=== PATIENT | male | born 1990 | race Caucasian/White ===

== ENCOUNTER 2019-08-15 14:50 | Emergency (ER) | payer SELFPAY ==
[~2019-08-15] VITALS: Ht 177 cm; Wt 64.3 kg
--- NOTE | 2019-08-15 16:51 | ED Respiratory ---
General Chief Complaint: Respiratory Problems Stated Complaint: UPPER RESPITORY INFECTION Nursing Triage Note: PATIENT STATES THAT HE STARTED FEELING POORLY FOR 72 HRS. HE IS SLEEPING A LOT, NO BM, NO URINE OUTPUT, CHILLS AND COLD SWEATS, STATES HE FEELS LIKE HE HAS AN UPPER RESP INFECTION. HE IS COUGHING (PRODUCTIVE), AND SNEEZING AND HAS A LOT OF DRAINAGE. Source: patient Exam Limitations: no limitations History of Present Illness Date Seen by Provider: Aug 15, 2019 Time Seen by Provider: 16:51 Initial Comments To ER with reports of headache, nasal congestion, cold chills, cough, no bowel movement, sneezing, nasal drainage for about 72 hours. Hasn't urinated in about 12 hours. Timing/Duration: constant, getting worse Severity: moderate Associated Symptoms: cough, fever/chills; No shortness of breath; sinus infection Allergies and Home Medications Allergies Coded Allergies: Penicillins (Verified Allergy, Unknown, 08/15/19) amoxicillin (Verified Allergy, Unknown, 08/15/19) Patient Home Medication List Home Medication List Reviewed: Yes Review of Systems Review of Systems Constitutional: see HPI, chills EENTM: see HPI, nose congestion, throat pain Respiratory: see HPI, cough Cardiovascular: no symptoms reported Genitourinary: no symptoms reported Musculoskeletal: no symptoms reported Skin: no symptoms reported Psychiatric/Neurological: No Symptoms Reported Hematologic/Lymphatic: No Symptoms Reported Past Zguwknm-Mqeslf-Kdhceg Hx Patient Social History Alcohol Use: Occasionally Uses Recreational Drug Use: Yes (MARIJUANA) Smoking Status: Current Someday Smoker 2nd Hand Smoke Exposure: Yes Recent Foreign Travel: No Contact w/Someone Who Travel: No Recent Infectious Disease Expo: No Recent Hopitalizations: No Seasonal Allergies Seasonal Allergies: No Past Medical History Surgeries: Yes Orthopedic, Tonsillectomy Respiratory: No Cardiac: No Neurological: No Genitourinary: No Gastrointestinal: No Musculoskeletal: No Endocrine: No HEENT: No Cancer: No Psychosocial: No Integumentary: No Blood Disorders: No Physical Exam Vital Signs - First Documented 08/15/19 15:08 Temp 36.6 Pulse 106 Resp 20 B/P (MAP) 139/93 (108) Pulse Ox 96 Capillary Refill : Less Than 3 Seconds Height: '" Weight: lbs. oz. kg; 20.00 BMI Method: General Appearance: WD/WN, no apparent distress Eyes: Bilateral Eye Normal Inspection, Bilateral Eye PERRL, Bilateral Eye EOMI HEENT: PERRL/EOMI, normal ENT inspection Neck: non-tender, full range of motion Respiratory: normal breath sounds, no respiratory distress, no accessory muscle use Cardiovascular: regular rate, rhythm, no murmur Gastrointestinal: normal bowel sounds, non tender, soft Neurologic/Psychiatric: alert, normal mood/affect, oriented x 3 Skin: normal color, warm/dry Progress/Results/Core Measures Suspected Sepsis Recent Fever Within 48 Hours: No Infection Criteria Present: Suspected New Infection New/Unexplained Altered Menta: No Sepsis Screen: No Definite Risk SIRS Temperature: Pulse: 106 Respiratory Rate: 20 Laboratory Tests 08/15/19 16:45: White Blood Count 9.1 Blood Pressure 139 /93 Mean: 108 Laboratory Tests 08/15/19 16:45: Creatinine 1.06, Platelet Count 230, Total Bilirubin 0.6 Results/Orders Lab Results Laboratory Tests Test 08/15/19 16:45 Range/Units White Blood Count 9.1 4.3-11.0 10^3/uL Red Blood Count 6.41 H 4.35-5.85 10^6/uL Hemoglobin 17.6 13.3-17.7 G/DL Hematocrit 52 40-54 % Mean Corpuscular Volume 81 80-99 FL Mean Corpuscular Hemoglobin 28 25-34 PG Mean Corpuscular Hemoglobin Concent 34 32-36 G/DL Red Cell Distribution Width 14.6 H 10.0-14.5 % Platelet Count 230 130-400 10^3/uL Mean Platelet Volume 10.9 H 7.4-10.4 FL Neutrophils (%) (Auto) 55 42-75 % Lymphocytes (%) (Auto) 30 12-44 % Monocytes (%) (Auto) 14 H 0-12 % Eosinophils (%) (Auto) 1 0-10 % Basophils (%) (Auto) 1 0-10 % Neutrophils # (Auto) 5.0 1.8-7.8 X 10^3 Lymphocytes # (Auto) 2.8 1.0-4.0 X 10^3 Monocytes # (Auto) 1.3 H 0.0-1.0 X 10^3 Eosinophils # (Auto) 0.1 0.0-0.3 10^3/uL Basophils # (Auto) 0.1 0.0-0.1 10^3/uL Sodium Level 139 135-145 MMOL/L Potassium Level 4.1 3.6-5.0 MMOL/L Chloride Level 101 98-107 MMOL/L Carbon Dioxide Level 21 21-32 MMOL/L Anion Gap 17 H 5-14 MMOL/L Blood Urea Nitrogen 18 7-18 MG/DL Creatinine 1.06 0.60-1.30 MG/DL Estimat Glomerular Filtration Rate > 60 BUN/Creatinine Ratio 17 Glucose Level 84 70-105 MG/DL Calcium Level 9.8 8.5-10.1 MG/DL Corrected Calcium 8.5-10.1 MG/DL Total Bilirubin 0.6 0.1-1.0 MG/DL Aspartate Amino Transf (AST/SGOT) 18 5-34 U/L Alanine Aminotransferase (ALT/SGPT) 17 0-55 U/L Alkaline Phosphatase 89 40-136 U/L Total Protein 7.8 6.4-8.2 GM/DL Albumin 4.8 H 3.2-4.5 GM/DL Micro Results Microbiology 08/15/19 Influenza Types A,B Antigen (SALLY) - Final, Complete My Orders Orders - LADAN FELDER APRN Chest Pa/Lat (2 View) (08/15/19 16:29) Cbc With Automated Diff (08/15/19 16:29) Comprehensive Metabolic Panel (08/15/19 16:29) Influenza A And B Antigens (08/15/19 16:29) Ns Iv 1000 Ml (Sodium Chloride 0.9%) (08/15/19 17:00) Ed Iv/Invasive Line Start (08/15/19 16:49) Vital Signs/I&O 08/15/19 15:08 Temp 36.6 Pulse 106 Resp 20 B/P (MAP) 139/93 (108) Pulse Ox 96 Capillary Refill : Less Than 3 Seconds Blood Pressure Mean: 108 POS Departure Communication (Admissions) He'd like a zpack he states Impression Primary Impression: Bronchitis Disposition: 01 HOME, SELF-CARE Condition: Stable Departure-Patient Inst. Decision time for Depature: 18:17 Patient Instructions: Viral Upper Respiratory Infection, Adult (DC), Acute Bronchitis Add. Discharge Instructions: 1. Return to ER for any concerns 2. Cough/decongestant medication as directed. Return to ER for any concerns. All discharge instructions reviewed with patient and/or family. Voiced understanding. Scripts D-Methorphan Hb/P-Epd HCl/Bpm (Bromfed Dm Cough Syrup) 118 Ml Syrup 5 ML PO Q4H PRN for CONGESTION for 7 Days, #120 ML Prov: LADAN FELDER APRN 08/15/19 Azithromycin (Azithromycin) 250 Mg Tablet 250 MG PO UD, #6 TAB TAKE 2 TABLETS ON DAY ONE THEN TAKE 1 TABLET DAILY FOR FOUR MORE DAYS Prov: LADAN FELDER APRN 08/15/19 LADAN FELDER APRN Aug 15, 2019 16:51 POS
[2019-08-15 16:52] LABS: BASOPHILS # (AUTO) 0.1 10^3/uL (0.0-0.1); BASOPHILS % (AUTO) 1 % (0-10); EOSINOPHILS # (AUTO) 0.1 10^3/uL (0.0-0.3); EOSINOPHILS % (AUTO) 1 % (0-10); HEMATOCRIT 52 % (40-54); HEMOGLOBIN 17.6 G/DL (13.3-17.7); LYMPHOCYTES # (AUTO) 2.8 X 10^3 (1.0-4.0); LYMPHOCYTES % (AUTO) 30 % (12-44); MEAN CORPUSCULAR HEMOGLOBIN 28 PG (25-34); MEAN CORPUSCULAR HGB CONC 34 G/DL (32-36); MEAN CORPUSCULAR VOLUME 81 FL (80-99); MEAN PLATELET VOLUME 10.9 FL (7.4-10.4); MONOCYTES # (AUTO) 1.3 X 10^3 (0.0-1.0); MONOCYTES % (AUTO) 14 % (0-12); NEUTROPHILS % (AUTO) 55 % (42-75); PLATELET COUNT 230 10^3/uL (130-400); RED CELL DISTRIBUTION WIDTH 14.6 % (10.0-14.5); WHITE BLOOD COUNT 9.1 10^3/uL (4.3-11.0)
[2019-08-15] MEDS ORDERED: NS IV 1000 ML 1,000 ML IV SCH (17:00)
[2019-08-15 17:19] LABS: ALANINE AMINOTRANSFERASE 17 U/L (0-55); ALBUMIN 4.8 GM/DL (3.2-4.5); ALKALINE PHOSPHATASE 89 U/L (40-136); BILIRUBIN,TOTAL 0.6 MG/DL (0.1-1.0); BUN/CREATININE RATIO 17; CALCIUM 9.8 MG/DL (8.5-10.1); CARBON DIOXIDE 21 MMOL/L (21-32); CHLORIDE 101 MMOL/L (98-107); CREATININE SERUM 1.06 MG/DL (0.60-1.30); GFR ESTIMATED > 60; GLUCOSE 84 MG/DL (70-105); POTASSIUM 4.1 MMOL/L (3.6-5.0); SODIUM 139 MMOL/L (135-145); TOTAL PROTEIN 7.8 GM/DL (6.4-8.2)
--- NOTE | 2019-08-15 17:27 | Diagnostic Imaging Report ---
INDICATION: Cough and congestion. FINDINGS: PA and lateral views. The lungs are well aerated and clear. There is no air-trapping. Heart is not enlarged. No pulmonary edema. No pneumothorax or pleural effusion. No bony abnormalities. IMPRESSION: Normal PA and lateral chest. Dictated by: Dictated on workstation # [id number]
[2019-08-15 18:53] VITALS: BP 139/93
[2019-08-15] MEDS ORDERED: AZIT250T12 PO (18:53)
[2019-08-15] MEDS ORDERED: D-ME118S33 PO (18:53)
--- OUTSIDE RECORDS SUMMARY | 2019-09-10 23:48 | XMS REPORT ---
Author Author Srikanth LOPEZ Organization [facility] Address Unknown Care Team Providers Care Sample Prep Technician Name Role Phone JOHNVIRGINIA Unavailable PROBLEMS Unknown Problems ALLERGIES Substance Reaction Event Type Date Status Penicillin G Benzathine Unknown Drug Allergy January, Acti ve Amoxicillin Unknown Drug Allergy January, Active ENCOUNTERS Encounter Location Date Diagnosis [facility] [id number] [place] [address] [phone] January, Dental caries K02.9 [facility] [address] [id number] [address] [place] [address] [phone] Dec, Dental examination Z01.20 IMMUNIZATIONS No Known Immunizations SOCIAL HISTORY Never Assessed REASON FOR VISIT TE PLAN OF CARE Activity Details Follow Up prn Reason:hygiene VITAL SIGNS Blood pressure systolic 140 mmHg 2018-01-17 Blood pressure diastolic 82 mmHg 2018-01-17 MEDICATIONS Medication Instructions Dosage Frequency Start Date End Date Duration S tatus tylenol Active Benadryl Active RESULTS No Results PROCEDURES Procedure Date Ordered Result Body Site EXTRAC ERUPTED TOOTH/EXPOSED ROOT January 17, 2018 INSTRUCTIONS MEDICATIONS ADMINISTERED No Known Medications MEDICAL (GENERAL) HISTORY Type Description Date Surgical History right femur traction break (1 belén and 2 screws placed) 2014 Hospitalization History above surgery
--- OUTSIDE RECORDS SUMMARY | 2019-09-10 23:48 | XMS REPORT | Continuity of Care Document ---
Author Organization Unknown Address Unknown Phone Unavailable Allergies Active Description Code Type Severity Reaction Onset Reported/Identified Relationship to Patient Clinical Status Yes amoxicillin [id number] Drug Aller gy Unknown N/A 08/15/2019 Yes Penicillins [id number] Drug Aller gy Unknown N/A 08/15/2019 Medications There is no data. Problems Date Dx Coded Attending Type Code Diagnosis Diagnosed By 08/15/2019 LADAN FELDER APRN Ot F17.200 NICOTINE DEPENDENCE, UNSPECIFIED, UNCOMP 08/15/2019 LADAN FELDER APRN Ot J40 BRONCHITIS, NOT SPECIFIED ACUTE OR CH 08/15/2019 LADAN FELDER APRN Ot R05 COUGH 08/15/2019 LADAN FELDER APRN Ot Z88 .0 ALLERGY STATUS TO PENICILLIN 08/15/2019 LADAN FELDER APRN Ot Z90.89 ACQUIRED ABSENCE OF OTHER ORGANS 08/19/2019 LADAN FELDER APRN Ot F17.200 NICOTINE DEPENDENCE, UNSPECIFIED, UNCOMP 08/19/2019 LADAN FELDER APRN Ot J40 BRONCHITIS, NOT SPECIFIED ACUTE OR CH 08/19/2019 LADAN FELDER APRN Ot R05 COUGH 08/19/2019 LADAN FELDER APRN Ot Z88 .0 ALLERGY STATUS TO PENICILLIN 08/19/2019 LADAN FELDER APRN Ot Z90.89 ACQUIRED ABSENCE OF OTHER ORGANS Procedures There is no data. Results Test Result Range Influenza virus A and B antigen detectio n - 08/15/19 16:25 FLU RESULT NEGATIVE FOR INFLUENZA A AND B ANTIGENS BY IA NR Complete blood count (CBC) with automate d white blood cell (WBC) differential - 08/15/19 16:45 Blood leukocytes automated count (number/volume) 9.1 10*3/uL 4.3-11.0 Blood erythrocytes automated count (number/volume) 6.41 10*6/uL 4.35-5.85 Venous blood hemoglobin measurement (mass/volume) 17.6 g/dL 13.3-17.7 Blood hematocrit (volume fraction) 52 % 40-54 Automated erythrocyte mean corpuscular volume 81 [ foz_us] 80-99 Automated erythrocyte mean corpuscular h emoglobin (mass per erythrocyte) 28 pg 25-34 Automated erythrocyte mean corpuscular h emoglobin concentration measurement (mass/volume) 34 g/dL 32-36 Automated erythrocyte distribution width ratio 14. 6 % 10.0- 14.5 Automated blood platelet count (count/volume) 230 10*3/uL 130-400 Automated blood platelet mean volume measurement 10.9 [foz_us] 7.4-10.4 Automated blood neutrophils/100 leukocytes 55 % 42-75 Automated blood lymphocytes/100 leukocytes 30 % 12-44 Blood monocytes/100 leukocytes 14 % 0-12 Automated blood eosinophils/100 leukocytes 1 % 0-10 Automated blood basophils/100 leukocytes 1 % 0-10 Blood neutrophils automated count (number/volume) 5.0 10*3 1.8-7.8 Blood lymphocytes automated count (number/volume) 2.8 10*3 1.0-4.0 Blood monocytes automated count (number/volume) 1. 3 10*3 0.0-1.0 Automated eosinophil count 0.1 10*3/uL 0 .0-0.3 Automated blood basophil count (count/volume) 0.1 10*3/uL 0.0-0.1 Comprehensive metabolic panel - 08/15/19 16:45 Serum or plasma sodium measurement (moles/volume) 139 mmol/L 135-145 Serum or plasma potassium measurement (moles/volume) 4.1 mmol/L 3.6-5.0 Serum or plasma chloride measurement (moles/volume) 101 mmol/L 98-107 Carbon dioxide 21 mmol/L 21-32 Serum or plasma anion gap determination (moles/volume) 17 mmol/L 5-14 Serum or plasma urea nitrogen measurement (mass/volume ) 18 mg/dL 7-18 Serum or plasma creatinine measurement (mass/volume) 1.06 mg/dL 0.60-1.30 Serum or plasma urea nitrogen/creatinine mass ratio 17 NRG Serum or plasma creatinine measurement w ith calculation of estimated glomerular filtration rate > NRG Serum or plasma glucose measurement (mass/volume) 84 mg/dL 70-105 Serum or plasma calcium measurement (mass/volume) 9.8 mg/dL 8.5-10.1 Serum or plasma total bilirubin measurement (mass/volu me) 0.6 mg/dL 0.1-1.0 Serum or plasma alkaline phosphatase yovany surement (enzymatic activity/volume) 89 U/L 40-136 Serum or plasma aspartate aminotransfera se measurement (enzymatic activity/volume) 18 U/L 5-34 Serum or plasma alanine aminotransferase measurement (enzymatic activity/volume) 17 U/L 0-55 Serum or plasma protein measurement (mass/volume) 7.8 g/dL 6.4-8.2 Serum or plasma albumin measurement (mass/volume) 4.8 g/dL 3.2-4.5 Encounters ACCT No. Visit Date/Time Discharge Status Pt. Type Provider Facility Loc./Unit Complaint [id number] 03/28/2019 12:00:00 03/28/2019 23:59: 59 CLS Outpatient [facility] [id number] 08/15/2019 14:54:00 019 18:54:00 DIS Emergency LADAN FELDER APRN [facility] ER UPPER RESPITORY INFECTI ON
--- OUTSIDE RECORDS SUMMARY | 2019-09-10 23:48 | XMS REPORT ---
Author Author Srikanth LOPEZ Organization [facility] Address Unknown Care Team Providers Care Public Relations Sales Marketing Name Role Phone VIRGINIA LOPEZ Unavailable PROBLEMS Unknown Problems ALLERGIES Substance Reaction Event Type Date Status Penicillin G Benzathine Unknown Drug Allergy Dec, Acti ve Amoxicillin Unknown Drug Allergy Dec, Active ENCOUNTERS Encounter Location Date Diagnosis [facility] [address] [id number] [address] [place] [address] [phone] January, Dental caries K02.9 [facility] [address] [id number] [address] [place] [address] [phone] Dec, Dental examination Z01.20 IMMUNIZATIONS No Known Immunizations SOCIAL HISTORY Never Assessed REASON FOR VISIT jersey PLAN OF CARE Activity Details Follow Up prn Reason:TE #17 45 min VITAL SIGNS Blood pressure systolic 122 mmHg 2018-01-04 Blood pressure diastolic 77 mmHg 2018-01-04 MEDICATIONS Medication Instructions Dosage Frequency Start Date End Date Duration S tatus Benadryl Active tylenol Active RESULTS No Results PROCEDURES Procedure Date Ordered Result Body Site LTD ORAL EVALUATION - PROBLEM FOCUS January 04, 2018 INTRAORL-PERIAPICAL 1 FILM 82117 January 04, 2018 BITEWING - SINGLE FILM January 04, 2018 INSTRUCTIONS MEDICATIONS ADMINISTERED No Known Medications MEDICAL (GENERAL) HISTORY Type Description Date Surgical History right femur traction break (1 belén and 2 screws placed) 2015 Hospitalization History above surgery
== END 2019-08-15 18:54 | disposition home or self-care (01) ==
LOC: ER 14:54
DX: J40 Bronchitis, not specified as acute or chronic (principal); F17.200 Nicotine dependence, unspecified, uncomplicated; Z90.89 Acquired absence of other organs; Z88.0 Allergy status to penicillin
CPT/HCPCS: 36415; 71046; 80053; 85025; 87804; 96360